=== PATIENT | male | born 1955 | race African-American/Black ===

== ENCOUNTER 2017-03-19 10:42 | Emergency (ER) | payer BC ==
[~2017-03-19] VITALS: Ht 182.9 cm; Wt 95.9 kg
[~2017-03-19 10:42] MED LIST: ADVAIR 100/501 DISK IH; NOHOMEMEDS; VENTOLIN HFA18 GM IH
[2017-03-19 11:12] LABS: HEMATOCRIT 48.1 % (38.0-50.0); HEMOGLOBIN 16.5 G/DL (12.5-16.6); MCH 31.4 PG (29.0-34.0); MCHC 34.3 G/DL (30.0-36.0); MCV 91.6 FL (86-99); PLATELET COUNT 192 K/uL (156-360); RBC DIS.WIDTH-CV 12.1 % (11.8-14.6); RED BLOOD COUNT 5.25 M/uL (4.00-5.50); WHITE BLOOD COUNT 4.9 K/uL (4.1-10.2)
[2017-03-19 11:29] LABS: CHLORIDE 104 mEq/L (99-109); POTASSIUM 4.2 mEq/L (3.7-5.4); SODIUM 138 mEq/L (136-147)
[2017-03-19 11:30] LABS: GLUCOSE 100 mg/dL (70-99)
[2017-03-19 11:34] LABS: CREATININE 1.4 mg/dL (0.6-1.3); GFR ESTIMATE (CALCULATED) > 59 mL/min/ (58.99-99999)
[2017-03-19 11:35] LABS: UREA NITROGEN (BUN) 19 mg/dL (9-23)
[2017-03-19] MEDS ORDERED: TAMIFLU75 MG PO (13:32)
[2017-03-19 13:44] VITALS: BP 142/70
== END 2017-03-19 13:59 | disposition home or self-care (01) ==
LOC: EME 10:42
DX: J10.1 Influenza due to other identified influenza virus with other respiratory manifestations (principal); J45.909 Unspecified asthma, uncomplicated
CPT/HCPCS: 71046; 80048; 85027; 87502; 99281; 99284